=== PATIENT | female | born 1995 | race American Indian/Alaskan Native ===

== ENCOUNTER 2016-08-14 21:22 | Emergency (ER) | payer SELFPAY ==
[2016-08-14] MEDS ORDERED: TYLENOL ONE (21:32)
[2016-08-14] MEDS ORDERED: TYLENOL PO ONE (21:33)
[2016-08-15] MEDS ORDERED: BICILLIN L-A IM ONE (01:09)
[2016-08-15] MEDS ORDERED: MOTRIN PO ONE (01:09)
--- NOTE | 2016-08-15 01:09 | Emergency Department Report ---
ED ENT HPI - General Chief complaint: Sore Throat Stated complaint: SORE THROAT, BODY PAIN/HOT FLASHES Time Seen by Provider: 08/15/16 00:54 Source: patient Mode of arrival: Ambulatory Limitations: No Limitations - History of Present Illness Initial comments: 20-year-old female with past medical history none presents with 3 days of sore throat patient speaking in full sentences state she is able to swallow solids and liquids with some discomfort. States that she recently had a family member test positive for strep throat this week MD complaint: sore throat Onset/Timin -: days(s) Location: throat Severity: moderate Quality: burning, aching Consistency: constant Worsens with: swallowing Associated Symptoms: sore throat - Related Data Previous Rx's Medication Instructions Recorded Last Taken Type Sulfamethoxazole/Trimethoprim 1 each PO BID #10 tablet 12/02/15 Unknown Rx [Bactrim DS TAB] ALBUTEROL Inhaler [ProAir HFA 2 puff IH QID PRN #1 inhalation 06/02/16 Unknown Rx Inhaler] predniSONE [Deltasone] 20 mg PO QDAY #5 tab 06/02/16 Unknown Rx Benzocaine/Menthol [Cepacol Sore 1 each MM Q6H PRN #18 lozenge 08/15/16 Unknown Rx Throat Lozenge] Ibuprofen [Motrin] 400 mg PO Q8H PRN #30 tablet 08/15/16 Unknown Rx Allergies Allergy/AdvReac Type Severity Reaction Status Date / Time seafood Allergy Swelling Uncoded 08/14/16 21:33 ED Dental HPI - General Chief complaint: Sore Throat Stated complaint: SORE THROAT, BODY PAIN/HOT FLASHES Time Seen by Provider: 08/15/16 00:54 Source: patient Mode of arrival: Ambulatory Limitations: No Limitations - Related Data Previous Rx's Medication Instructions Recorded Last Taken Type Sulfamethoxazole/Trimethoprim 1 each PO BID #10 tablet 12/02/15 Unknown Rx [Bactrim DS TAB] ALBUTEROL Inhaler [ProAir HFA 2 puff IH QID PRN #1 inhalation 06/02/16 Unknown Rx Inhaler] predniSONE [Deltasone] 20 mg PO QDAY #5 tab 06/02/16 Unknown Rx Benzocaine/Menthol [Cepacol Sore 1 each MM Q6H PRN #18 lozenge 08/15/16 Unknown Rx Throat Lozenge] Ibuprofen [Motrin] 400 mg PO Q8H PRN #30 tablet 08/15/16 Unknown Rx Allergies Allergy/AdvReac Type Severity Reaction Status Date / Time seafood Allergy Swelling Uncoded 08/14/16 21:33 ED Review of Systems ROS: Stated complaint: SORE THROAT, BODY PAIN/HOT FLASHES Other details as noted in HPI Constitutional: denies: chills, fever Eyes: denies: eye pain, eye discharge, vision change ENT: throat pain. denies: ear pain Respiratory: denies: cough, shortness of breath, wheezing Cardiovascular: denies: chest pain, palpitations Endocrine: no symptoms reported Gastrointestinal: denies: abdominal pain, nausea, diarrhea Genitourinary: denies: urgency, dysuria, discharge Musculoskeletal: denies: back pain, joint swelling, arthralgia Skin: denies: rash, lesions Neurological: denies: headache, weakness, paresthesias Psychiatric: denies: anxiety, depression Hematological/Lymphatic: denies: easy bleeding, easy bruising ED Past Medical Hx - Past Medical History Previous Medical History?: Yes Hx Asthma: Yes - Surgical History Past Surgical History?: Yes Additional Surgical History: D&C - Social History Smoking Status: Former Smoker Substance Use Type: None - Medications Home Medications: Home Medications Medication Instructions Recorded Confirmed Last Taken Type Sulfamethoxazole/Trimethoprim 1 each PO BID #10 tablet 12/02/15 Unknown Rx [Bactrim DS TAB] ALBUTEROL Inhaler [ProAir HFA 2 puff IH QID PRN #1 inhalation 06/02/16 Unknown Rx Inhaler] predniSONE [Deltasone] 20 mg PO QDAY #5 tab 06/02/16 Unknown Rx Benzocaine/Menthol [Cepacol Sore 1 each MM Q6H PRN #18 lozenge 08/15/16 Unknown Rx Throat Lozenge] Ibuprofen [Motrin] 400 mg PO Q8H PRN #30 tablet 08/15/16 Unknown Rx ED Physical Exam - General Limitations: No Limitations General appearance: alert, in no apparent distress - Head Head exam: Present: atraumatic, normocephalic - Eye Eye exam: Present: normal appearance - ENT ENT exam: Present: mucous membranes moist - Expanded ENT Exam Expanded Ear exam: Present: normal external inspection Mouth exam: Present: tongue normal Teeth exam: Present: normal inspection Throat exam: Positive: tonsillar erythema, tonsillar exudate - Neck Neck exam: Present: normal inspection - Respiratory Respiratory exam: Present: normal lung sounds bilaterally. Absent: respiratory distress - Cardiovascular Cardiovascular Exam: Present: regular rate, normal rhythm. Absent: systolic murmur, diastolic murmur, rubs, gallop - GI/Abdominal GI/Abdominal exam: Present: soft, normal bowel sounds - Extremities Exam Extremities exam: Present: normal inspection - Back Exam Back exam: Present: normal inspection - Neurological Exam Neurological exam: Present: alert, oriented X3 - Psychiatric Psychiatric exam: Present: normal affect, normal mood - Skin Skin exam: Present: warm, dry, intact, normal color. Absent: rash ED Course Vital Signs 08/14/16 08/14/16 08/15/16 21:29 21:35 01:30 Temperature 101.1 F H 98.1 F Pulse Rate 113 H 90 Respiratory 18 20 18 Rate Blood Pressure 128/76 Blood Pressure 126/74 [Left] O2 Sat by Pulse 99 99 Oximetry ED Medical Decision Making - Medical Decision Making A/P: strep Pharyngitis 1-strep test positive will treat with Bicillin, Motrin when necessary, throat lozenges when necessary 2-pt has no signs of [employer] Mary Lou to swallow solids and liquids without significant difficulty no stridor no dyspnea no trismus no drooling Critical care attestation.: If time is entered above; I have spent that time in minutes in the direct care of this critically ill patient, excluding procedure time. ED Disposition Clinical Impression: Pharyngitis Qualifiers: Pharyngitis/tonsillitis etiology: streptococcus Qualified Code(s): J02.0 - Streptococcal pharyngitis Disposition: DISCHARGED TO HOME OR SELFCARE Is pt being admited?: No Does the pt Need Aspirin: No Condition: Stable Instructions: Pharyngitis (ED), Strep Throat (ED) Prescriptions: Benzocaine/Menthol [Cepacol Sore Throat Lozenge] 1 each MM Q6H PRN #18 lozenge PRN Reason: Sore Throat Ibuprofen [Motrin] 400 mg PO Q8H PRN #30 tablet PRN Reason: Pain Referrals: [facility] [Outside] - 3-5 Days Time of Disposition: 01:10
[2016-08-15 01:34] VITALS: BP 126/74
== END 2016-08-15 01:34 | disposition home or self-care (01) ==
LOC: ED 21:22
DX: J02.0 Streptococcal pharyngitis (principal); J45.909 Unspecified asthma, uncomplicated; Z87.891 Personal history of nicotine dependence; Z91.013 Allergy to seafood
CPT/HCPCS: 87430; 96372; 99282; J0561

== ENCOUNTER 2016-09-03 09:49 | Emergency (ER) | payer SELFPAY ==
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
[2016-09-03] MEDS ORDERED: NORCO 5/325 PO ONE (14:09)
[2016-09-03 15:00] VITALS: BP 130/74
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
== END 2016-09-03 15:01 | disposition home or self-care (01) ==
LOC: ED 09:49
DX: S09.90XA Unspecified injury of head, initial encounter (principal); J45.909 Unspecified asthma, uncomplicated; Y08.89XA Assault by other specified means, initial encounter; Y93.9 Activity, unspecified; Y92.9 Unspecified place or not applicable; Y99.9 Unspecified external cause status
CPT/HCPCS: 70450; 99284

== ENCOUNTER 2017-06-02 22:23 | Emergency (ER) | payer OTHER ==
[2017-06-02 22:47] LABS: Bacteria,Urine 1+ /HPF (Negative); Bilirubin,Urine NEG (Negative); Blood,Urine NEG (Negative); Ketones,Urine TR mg/dL (Negative); Leukocyte Esterase,Urine MOD (Negative); Mucus,Urine 3+ /HPF; Nitrite,Urine NEG (Negative)
[2017-06-02 22:51] LABS: Basophils % (Auto) 0.6 % (0.0-1.8); Eosinophils % (Auto) 1.6 % (0.0-4.3); Hematocrit 33.5 % (30.3-42.9); Hemoglobin 10.9 gm/dl (10.1-14.3); Mean Corpuscular HGB Conc 32 % (30-34); Mean Corpuscular Hemoglobin 26 pg (28-32); Mean Corpuscular Volume 79 fl (79-97); Platelet Count 288 K/mm3 (140-440); Red Blood Count 4.25 M/mm3 (3.65-5.03); Red Cell Distribution Width 14.2 % (13.2-15.2); White Blood Count 7.8 K/mm3 (4.5-11.0)
[2017-06-02 23:09] LABS: Alanine Aminotransferase 7 units/L (7-56); Albumin 4.3 g/dL (3.9-5); Albumin/Globulin Ratio 1.2 %; Alkaline Phosphatase 66 units/L (35-129); Anion Gap 15 mmol/L; BUN/Creatinine Ratio 19; Blood Urea Nitrogen 15 mg/dL (7-17); Calcium 9.3 mg/dL (8.4-10.2); Carbon Dioxide 28 mmol/L (22-30); Chloride 101.5 mmol/L (98-107); Glucose 76 mg/dL (65-100); Lipase 37 units/L (13-60); Potassium 3.4 mmol/L (3.6-5.0); Sodium 141 mmol/L (137-145); Total Protein 7.9 g/dL (6.3-8.2)
--- NOTE | 2017-06-03 03:35 | Emergency Department Report ---
ED Female HPI - General Chief complaint: Abdominal Pain Stated complaint: ABD AND EAR PAIN Time Seen by Provider: 06/03/17 02:51 Source: patient Mode of arrival: Ambulatory Limitations: No Limitations - History of Present Illness Initial comments: This is a 21 y.o. female presents with abdominal pain and bilateral ear pain. Patient states abdominal pain is generalized and started . Denies nausea , vomiting, diarrhea, discharge, or dysuria. States both ears are experiencing pain for 2 weeks. She cleaned them out with q-tips but didn't see anything come out while cleaning. Denies discharge or odor. She has not tried taking anything to relieve pain. Denies exposure to STD. MD Complaint: pelvic pain -: week(s) (2) Location: LLQ, RLQ Radiation: non-radiating Severity: moderate Severity scale (0 -10): 9 Quality: aching Consistency: intermittent Improves with: none Worsens with: none Are you Now?: No Associated Symptoms: abdominal pain. denies: vaginal discharge, vaginal bleeding, nausea/vomiting, fever/chills, headaches, loss of appetite, dysuria, hematuria, rash, seizure, shortness of breath, syncope, weakness - Related Data Sexually active: Yes Previous Rx's Medication Instructions Recorded Last Taken Type Sulfamethoxazole/Trimethoprim 1 each PO BID #10 tablet 12/02/15 Unknown Rx [Bactrim DS TAB] ALBUTEROL Inhaler [ProAir HFA 2 puff IH QID PRN #1 inhalation 06/02/16 Unknown Rx Inhaler] predniSONE [Deltasone] 20 mg PO QDAY #5 tab 06/02/16 Unknown Rx Benzocaine/Menthol [Cepacol Sore 1 each MM Q6H PRN #18 lozenge 08/15/16 Unknown Rx Throat Lozenge] Ibuprofen [Motrin] 400 mg PO Q8H PRN #30 tablet 08/15/16 Unknown Rx Naproxen [Naprosyn] 500 mg PO BID #30 tablet 09/03/16 Unknown Rx Ciprofloxacin 0.2%(Nf) 1 each OT BID 7 Days #1 bottle 06/03/17 Unknown Rx [Ciprofloxacin OTIC] Sulfamethoxazole/Trimethoprim 1 each PO BID 3 Days #6 tablet 06/03/17 Unknown Rx [Bactrim DS TAB] Allergies Allergy/AdvReac Type Severity Reaction Status Date / Time seafood Allergy Swelling Uncoded 06/02/17 22:24 ED Review of Systems ROS: Stated complaint: ABD AND EAR PAIN Other details as noted in HPI Constitutional: no symptoms reported, see HPI. denies: chills, diaphoresis, fever, malaise, weakness Respiratory: no symptoms reported, see HPI. denies: cough, orthopnea, shortness of breath, SOB with exertion, SOB at rest, stridor, wheezing Cardiovascular: as per HPI. denies: chest pain, palpitations, dyspnea on exertion, orthopnea, edema, syncope, paroxysmal nocturnal dyspnea Gastrointestinal: as per HPI, abdominal pain. denies: nausea, vomiting, diarrhea, constipation, hematemesis, melena, hematochezia Genitourinary: as per HPI. denies: urgency, dysuria, frequency, hematuria, discharge, abnormal menses, dyspareunia Neurological: as per HPI. denies: headache, weakness, numbness, paresthesias, confusion, abnormal gait, vertigo Psychiatric: as per HPI. denies: anxiety, depression, auditory hallucinations, visual hallucinations, homicidal thoughts, suicidal thoughts ED Past Medical Hx - Past Medical History Hx Asthma: Yes - Surgical History Additional Surgical History: D&C - Social History Smoking Status: Never Smoker Substance Use Type: None - Medications Home Medications: Home Medications Medication Instructions Recorded Confirmed Last Taken Type Sulfamethoxazole/Trimethoprim 1 each PO BID #10 tablet 12/02/15 Unknown Rx [Bactrim DS TAB] ALBUTEROL Inhaler [ProAir HFA 2 puff IH QID PRN #1 inhalation 06/02/16 Unknown Rx Inhaler] predniSONE [Deltasone] 20 mg PO QDAY #5 tab 06/02/16 Unknown Rx Benzocaine/Menthol [Cepacol Sore 1 each MM Q6H PRN #18 lozenge 08/15/16 Unknown Rx Throat Lozenge] Ibuprofen [Motrin] 400 mg PO Q8H PRN #30 tablet 08/15/16 Unknown Rx Naproxen [Naprosyn] 500 mg PO BID #30 tablet 09/03/16 Unknown Rx Ciprofloxacin 0.2%(Nf) 1 each OT BID 7 Days #1 bottle 06/03/17 Unknown Rx [Ciprofloxacin OTIC] Sulfamethoxazole/Trimethoprim 1 each PO BID 3 Days #6 tablet 06/03/17 Unknown Rx [Bactrim DS TAB] ED Physical Exam - General Limitations: No Limitations General appearance: alert, in no apparent distress - ENT ENT exam: Present: other (Left ear, TM bulging, erythematous, mastoid tenderness ) - Respiratory Respiratory exam: Present: normal lung sounds bilaterally. Absent: respiratory distress, wheezes, rales, rhonchi, stridor, chest wall tenderness, accessory muscle use, decreased breath sounds, prolonged expiratory - Cardiovascular Cardiovascular Exam: Present: regular rate, normal rhythm, normal heart sounds. Absent: bradycardia, tachycardia, irregular rhythm, systolic murmur, diastolic murmur, rubs, gallop, clicks, JVD, S3, S4 - GI/Abdominal GI/Abdominal exam: Present: soft, tenderness (RLQ and LLQ), normal bowel sounds. Absent: distended, guarding, rebound, rigid, diminished bowel sounds, hyperactive bowel sounds, hypoactive bowel sounds, organomegaly, mass, bruit, pulsatile mass, hernia - Neurological Exam Neurological exam: Present: alert, oriented X3, CN II-XII intact, normal gait. Absent: altered, abnormal gait, motor sensory deficit - Psychiatric Psychiatric exam: Present: normal affect, normal mood. Absent: depressed, agitated, anxious, flat affect, manic, homicidal ideation, suicidal ideation - Skin Skin exam: Present: warm, dry, intact, normal color. Absent: rash, cyanosis, diaphoretic, erythema, urticaria, vesicles, petechiae, pallor, abrasion, ecchymosis ED Course Vital Signs 06/02/17 22:27 Temperature 98.2 F Pulse Rate 70 Respiratory 18 Rate Blood Pressure 102/66 O2 Sat by Pulse 100 Oximetry ED Medical Decision Making - Lab Data Result diagrams: 06/02/17 22:36 06/02/17 22:36 Critical care attestation.: If time is entered above; I have spent that time in minutes in the direct care of this critically ill patient, excluding procedure time. ED Disposition Clinical Impression: UTI (urinary tract infection) Qualifiers: Urinary tract infection type: acute cystitis Hematuria presence: without hematuria Qualified Code(s): N30.00 - Acute cystitis without hematuria Otitis media Qualifiers: Otitis media type: suppurative Chronicity: acute Laterality: left Recurrence: not specified as recurrent Spontaneous tympanic membrane rupture: without spontaneous rupture Qualified Code(s): H66.002 - Acute suppurative otitis media without spontaneous rupture of ear drum, left ear Disposition: - TO HOME OR SELFCARE Is pt being admited?: No Does the pt Need Aspirin: No Condition: Stable Instructions: Urinary Tract Infection in Women (ED), Otitis Media (ED), Abdominal Pain (ED) Additional Instructions: Increase fluid intake. Prescriptions: Ciprofloxacin 0.2%(Nf) [Ciprofloxacin OTIC] 1 each OT BID 7 Days #1 bottle Sulfamethoxazole/Trimethoprim [Bactrim DS TAB] 1 each PO BID 3 Days #6 tablet Referrals: PRIMARY CARE, [Primary Care Provider] - 3-5 Days Time of Disposition: 03:48 Print Language: NICARAGUAN
[2017-06-03 03:55] VITALS: BP 114/69
== END 2017-06-03 03:55 | disposition home or self-care (01) ==
LOC: ED 22:23
DX: N39.0 Urinary tract infection, site not specified (principal); H66.93 Otitis media, unspecified, bilateral; Z91.013 Allergy to seafood
CPT/HCPCS: 36415; 80053; 81001; 83690; 84703; 85025; 99283

== ENCOUNTER 2017-12-02 09:07 | Emergency (ER) | payer SELFPAY ==
[2017-12-02 09:13] VITALS: BP 127/84
[2017-12-02 09:55] LABS: Basophils % (Auto) 0.5 % (0.0-1.8); Eosinophils % (Auto) 0.2 % (0.0-4.3); Hematocrit 34.3 % (30.3-42.9); Hemoglobin 10.7 gm/dl (10.1-14.3); Lymphocytes # (Auto) 1.9 K/mm3 (1.2-5.4); Lymphocytes % (Auto) 29.4 % (13.4-35.0); Mean Corpuscular HGB Conc 31 % (30-34); Mean Corpuscular Volume 76 fl (79-97); Monocytes # (Auto) 0.5 K/mm3 (0.0-0.8); Monocytes % (Auto) 7.6 % (0.0-7.3); Platelet Count 297 K/mm3 (140-440); Red Cell Distribution Width 17.2 % (13.2-15.2)
[2017-12-02 10:00] LABS: Mean Corpuscular Hemoglobin 24 pg (28-32)
[2017-12-02 10:16] LABS: Alanine Aminotransferase 8 units/L (7-56); Albumin 4.3 g/dL (3.9-5); BUN/Creatinine Ratio 18; Blood Urea Nitrogen 11 mg/dL (7-17); Calcium 9.3 mg/dL (8.4-10.2); Hemolysis Index 6
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
[2017-12-02 11:55] LABS: Bacteria,Urine 1+ /HPF (Negative); Bilirubin,Urine NEG (Negative); Blood,Urine NEG (Negative); Color,Urine Yellow (Yellow); Protein,Urine <15 mg/dL mg/dL (Negative); Urobilinogen,Urine < 2.0 mg/dL (<2.0)
[2017-12-02 12:02] LABS: HCG Qualitative,Urine Positive (Negative)
== END 2017-12-02 10:57 | disposition left against medical advice (07) ==
LOC: ED 09:07
DX: R10.30 Lower abdominal pain, unspecified (principal); M25.561 Pain in right knee; Z91.013 Allergy to seafood
CPT/HCPCS: 36415; 80053; 81001; 81025; 85025

== ENCOUNTER 2019-05-05 12:09 | Emergency (ER) | payer MEDICAID ==
[2019-05-05 13:38] VITALS: BP 123/76
--- NOTE | 2019-05-05 13:40 | Event Note ---
ED Screening Note Date of service: 05/05/19 Time: 13:37 ED Screening Note: This is a 23 y.o. F. that presents to the ER with SOB and dizziness since 7 AM this morning. PMH of asthma Using albuterol with minimal improvement of symptoms. Denies chest pain, cough, fever, or chills This initial assessment/diagnostic orders/clinical plan/treatment(s) is/are subject to change based on patients health status, clinical progression and re- assessment by fellow clinical providers in the ED. Further treatment and workup at subsequent clinical providers discretion. Patient/guardian urged not to elope from the ED as their condition may be serious if not clinically assessed and managed. Initial orders include:
== END 2019-05-05 15:35 | disposition left against medical advice (07) ==
LOC: ED 12:09
DX: R06.02 Shortness of breath (principal); R42 Dizziness and giddiness; Z53.21 Procedure and treatment not carried out due to patient leaving prior to being seen by health care provider

== ENCOUNTER 2020-05-23 17:28 | Emergency (ER) | payer SELFPAY ==
[2020-05-23 17:42] VITALS: BP 147/70
--- NOTE | 2020-05-23 18:03 | Event Note ---
ED Screening Note ED Screening Note: vaginal bleeding last night states she should be approximately 5-6 weeks LNMP: last week of march no abd pain no fever no n/v/d no dysuria PMHx asthma no allergies to meds /P:0/A:1 This initial assessment/diagnostic orders/clinical plan/treatment(s) is/are subject to change based on patients health status, clinical progression and re- assessment by fellow clinical providers in the ED. Further treatment and workup at subsequent clinical providers discretion. Patient/guardian urged not to elope from the ED as their condition may be serious if not clinically assessed and managed. Initial orders include: labs, UA
[2020-05-23 18:27] LABS: Basophils % (Auto) 0.6 % (0.0-1.8); Eosinophils # (Auto) 0.1 K/mm3 (0.0-0.4); Eosinophils % (Auto) 1.5 % (0.0-4.3); Hematocrit 34.6 % (30.3-42.9); Lymphocytes % (Auto) 29.2 % (13.4-35.0); Mean Corpuscular HGB Conc 32 % (30-34); Mean Corpuscular Volume 78 fl (79-97); Monocytes # (Auto) 0.7 K/mm3 (0.0-0.8); Monocytes % (Auto) 9.5 % (0.0-7.3); Platelet Count 302 K/mm3 (140-440); Red Blood Count 4.45 M/mm3 (3.65-5.03); Red Cell Distribution Width 15.6 % (13.2-15.2)
[2020-05-23 18:38] LABS: Blood Urea Nitrogen 10 mg/dL (7-17); Calcium 9.6 mg/dL (8.4-10.2); Hemolysis Index 3
[2020-05-23 18:40] LABS: BUN/Creatinine Ratio 17
[2020-05-23 18:50] LABS: Bilirubin,Urine NEG (Negative); Blood,Urine LG (Negative); Color,Urine Yellow (Yellow); Hyaline Casts,Urine 1 /LPF; Mucus,Urine FEW /HPF; Protein,Urine <15 mg/dL mg/dL (Negative); Urobilinogen,Urine < 2.0 mg/dL (<2.0)
--- NOTE | 2020-05-23 21:37 | Ultrasound Report ---
TRANSABDOMINAL OB PELVIC ULTRASOUND INDICATION / CLINICAL INFORMATION: Vaginal bleeding. COMPARISON: None available. FINDINGS: There is a early intrauterine gestational sac measuring 6 weeks in size. A yolk sac is present. I do not identify a pole or cardiac activity at this time. There is no evidence of implantation hemo rrhage. The right ovary measures 3.6 x 3.5 x 3.8 cm and contains a 3 cm mildly complex cystic mass with mild blood flow in its wall. The left ovary is not seen. There is no evidence of extraovarian mass or free fluid. The patient did not desire transvaginal imaging. IMPRESSION: 1. 6 week intrauterine of uncertain viability. Short-term sonographic follow-up in 7-10 day s may be helpful in further evaluation. 2. 3 cm complex cystic lesion in the right ovary likely represents a corpus luteal cyst. No evidence of extraovarian mass to suggest ectopic . Signer Name: Mike Marin MD Signed: 05/23/2020 9:33 PM Workstation Name: [id number]
== END 2020-05-23 20:15 | disposition left against medical advice (07) ==
LOC: ED 17:28
DX: O26.891 Other specified pregnancy related conditions, first trimester (principal); Z53.21 Procedure and treatment not carried out due to patient leaving prior to being seen by health care provider; Z3A.01 Less than 8 weeks gestation of pregnancy
CPT/HCPCS: 36415; 76801; 80048; 81001; 84702; 85025; 86900; 86901; 87086

== ENCOUNTER 2020-05-28 19:01 | Emergency (ER) | payer SELFPAY ==
[2020-05-28 19:38] VITALS: BP 115/63
[2020-05-28 19:58] LABS: Bacteria,Urine 1+ /HPF (Negative); Bilirubin,Urine NEG (Negative); Blood,Urine LG (Negative); Color,Urine Yellow (Yellow); Mucus,Urine 1+ /HPF
--- NOTE | 2020-05-28 20:00 | Event Note ---
ED Screening Note Date of service: 05/28/20 Time: 19:58 ED Screening Note: 24-year-old -[place] female reports that she is presents to the ER for vaginal bleeding that started today. Patient states that she has gone through no passage of spotting. She reports that this started around 2 PM. She denies any dysuria. Last menstrual period was 04/11/2020. She is 2 para zero. This initial assessment/diagnostic orders/clinical plan/treatment(s) is/are subject to change based on patients health status, clinical progression and re- assessment by fellow clinical providers in the ED. Further treatment and workup at subsequent clinical providers discretion. Patient/guardian urged not to elope from the ED as their condition may be serious if not clinically assessed and managed. Initial orders include:
[2020-05-28 20:20] LABS: Basophils % (Auto) 0.7 % (0.0-1.8); Eosinophils # (Auto) 0.2 K/mm3 (0.0-0.4); Eosinophils % (Auto) 2.5 % (0.0-4.3); Hematocrit 32.5 % (30.3-42.9); Hemoglobin 10.3 gm/dl (10.1-14.3); Lymphocytes # (Auto) 2.3 K/mm3 (1.2-5.4); Lymphocytes % (Auto) 36.7 % (13.4-35.0); Mean Corpuscular HGB Conc 32 % (30-34); Mean Corpuscular Volume 77 fl (79-97); Monocytes # (Auto) 0.8 K/mm3 (0.0-0.8); Monocytes % (Auto) 11.9 % (0.0-7.3); Platelet Count 311 K/mm3 (140-440); Red Cell Distribution Width 16.1 % (13.2-15.2)
== END 2020-05-29 00:02 | disposition left against medical advice (07) ==
LOC: ED 19:01
DX: O20.9 Hemorrhage in early pregnancy, unspecified (principal); Z3A.00 Weeks of gestation of pregnancy not specified; Z53.21 Procedure and treatment not carried out due to patient leaving prior to being seen by health care provider
CPT/HCPCS: 36415; 81001; 84702; 85025; 86900; 86901